=== PATIENT | female | born 1955 | race Caucasian/White ===

== ENCOUNTER 2024-03-30 10:26 | Day surgery (SDC) | payer BC, MEDICARE, OTHER ==
[2024-03-30] MEDS: Lactated Ringers 1,000 ML IV SCH (10:43)
[2024-03-30] MEDS ORDERED: fentaNYL 100 MCG/2 ML SDV ONE (11:25)
[2024-03-30] MEDS ORDERED: Propofol 200 MG/20 ML SDV ONE (11:25)
== END 2024-03-30 14:44 | disposition home or self-care (01) ==
LOC: VM.SDS 10:26
PROVIDERS: ATTEND Family Medicine
DX: Z12.11 Encounter for screening for malignant neoplasm of colon (principal); K51.40 Inflammatory polyps of colon without complications; K57.30 Diverticulosis of large intestine without perforation or abscess without bleeding; Z86.010 Personal history of colon polyps; I10 Essential (primary) hypertension; E78.2 Mixed hyperlipidemia; E66.9 Obesity, unspecified; Z68.35 Body mass index [BMI] 35.0-35.9, adult; K21.9 Gastro-esophageal reflux disease without esophagitis; Z79.82 Long term (current) use of aspirin; Z79.899 Other long term (current) drug therapy
CPT/HCPCS: 00811; 45385; J2704; J3010; J7120; 88305